=== PATIENT | male | born 1985 | race Caucasian/White ===

== ENCOUNTER 2016-10-03 03:52 | Emergency (ER) | payer SELFPAY ==
[2016-10-03] MEDS ORDERED: SODIUM CHLORIDE 0.9% 1,000 ML ONE (04:28)
[2016-10-03] MEDS ORDERED: ONDANSETRON 4 MG VIAL ONE (04:29)
[2016-10-03] MEDS ORDERED: KETOROLAC 30 MG/ML VIAL ONE (04:59)
[2016-10-03] MEDS ORDERED: SODIUM CHLORIDE 0.9% 100 ML IV ONE (06:21)
[2016-10-03] MEDS ORDERED: CEFTRIAXONE 1 GM VIAL ONE (06:21)
== END 2016-10-03 06:59 | disposition home or self-care (01) ==
LOC: ER 03:52
DX: N39.0 Urinary tract infection, site not specified (principal); R11.2 Nausea with vomiting, unspecified; F17.210 Nicotine dependence, cigarettes, uncomplicated
CPT/HCPCS: 36415; 71010; 74000; 80053; 80307; 81001; 83690; 85025; 87088; 96361; 96365; 96375